=== PATIENT | female | born 1945 | race Caucasian/White ===

== ENCOUNTER 2022-08-04 16:20 | Emergency (ER) | payer MEDICARE, OTHER ==
[~2022-08-04] VITALS: Ht 154.9 cm; Wt 70.8 kg
[2022-08-04] MEDS ORDERED: FAMO40TA7 MT (16:28)
[2022-08-04] MEDS ORDERED: LEVO88TA5 MT (16:28)
[2022-08-04] MEDS ORDERED: PRAV20TA4 MT (16:28)
[2022-08-04] MEDS ORDERED: LETR2.5T8 MT (16:28)
[2022-08-04] MEDS ORDERED: LOSA100T31 MT (16:28)
[2022-08-04] MEDS ORDERED: AMLO-212 MT (16:28)
[2022-08-04] MEDS ORDERED: CARV6.252 MT (16:28)
[2022-08-04 16:41] LABS: HEMATOCRIT 42.6 % (31.2-41.9); MEAN CORPUSCULAR HEMOGLOBIN 30.2 uug (24.7-32.8); MEAN CORPUSCULAR VOLUME 89.9 fL (75.5-95.3); PLATELET COUNT (AUTO) 211 K/uL (179-408)
[2022-08-04 17:00] LABS: ALANINE AMINOTRANSFERASE 76 U/L (14-59); ALKALINE PHOSPHATASE 67 U/L (50-136); ASPARTATE AMINOTRANSFERASE 53 U/L (15-37); BILIRUBIN,DIRECT 0.2 mg/dL (0.0-0.2); BILIRUBIN,TOTAL 0.7 mg/dL (0.2-1.0); CARBON DIOXIDE 29 mmol/L (21-32); CHLORIDE 97 mmol/L (98-107); CREATININE 0.8 mg/dL (0.6-1.3); GLUCOSE 166 mg/dL (74-106); LIPASE 141 U/L (73-393); POTASSIUM 4.1 mmol/L (3.5-5.1); UREA NITROGEN, BLOOD 15 mg/dL (7-18)
[2022-08-04] MEDS ORDERED: ONDA4TAB11 PO (17:55)
--- NOTE | 2022-08-04 18:00 | NUR ---
Patient tolerate PO challenge
--- NOTE | 2022-08-04 18:15 | NUR ---
Patient discharged to home in stable condition. Written and verbal after care instructions given. Patient verbalizes understanding of instructions. Stressed follow up or return to ER for worsening s/s.
[2022-08-04 18:16] VITALS: BP 142/75
== END 2022-08-04 18:18 | disposition home or self-care (01) ==
LOC: ER 16:38
DX: I11.9 Hypertensive heart disease without heart failure (principal); R10.9 Unspecified abdominal pain; R11.2 Nausea with vomiting, unspecified; D25.9 Leiomyoma of uterus, unspecified; M41.84 Other forms of scoliosis, thoracic region; Z96.611 Presence of right artificial shoulder joint; E89.0 Postprocedural hypothyroidism; Z79.890 Hormone replacement therapy; Z85.3 Personal history of malignant neoplasm of breast; Z90.10 Acquired absence of unspecified breast and nipple
CPT/HCPCS: 36415; 71045; 83690; 84484; 85025; 93005; A4663